=== PATIENT | male | born 1970 | race Hispanic/Latino ===

== ENCOUNTER 2024-03-18 18:29 | Emergency (ER) | payer OTHER ==
[~2024-03-18] VITALS: Ht 175.3 cm; Wt 108.9 kg
[2024-03-18] MEDS: SODIUM CHLORIDE 0.9% 1000ML 1,000 ML IV STA (19:18)
[2024-03-18] MEDS: ACETAMINOPHEN 325 MG TAB PO STA (19:18)
[2024-03-18 19:20] LABS: BASOPHILS # (AUTO) 0.1 (0.0-0.1); BASOPHILS % 0.4 % (0.0-1.0); EOSINOPHILS # (AUTO) 0.2 (0.0-0.4); EOSINOPHILS % 1.2 % (0.0-6.0); HEMATOCRIT 44.2 % (38.2-49.6); HEMOGLOBIN 14.9 g/dL (14.0-18.0); LYMPHOCYTES # (AUTO) 2.3 (1.0-3.2); LYMPHOCYTES % 16.6 % (18.0-39.1); MEAN CORPUSCULAR HEMOGLOBIN 30.2 pg (28-32); MEAN CORPUSCULAR HGB CONC 33.7 g/dL (31-35); MEAN CORPUSCULAR VOLUME 89.5 fL (81-99); MONOCYTES # (AUTO) 1.2 (0.2-0.8); MONOCYTES % 8.6 % (4.4-11.3); NEUTROPHILS # (AUTO) 9.8 (2.1-6.9); NEUTROPHILS % 71.5 % (38.7-80.0); PLATELET COUNT 212 x10e3/uL (140-360); RED BLOOD COUNT 4.94 x10e6/uL (4.3-5.7); RED CELL DISTRIBUTION WIDTH 12.6 % (11.7-14.4); WHITE BLOOD COUNT 13.65 x10e3/uL (4.8-10.8)
[2024-03-18 19:38] LABS: ALBUMIN 3.3 g/dL (3.5-5.0); ALBUMIN/GLOBULIN RATIO 0.8 (0.8-2.0); ANION GAP 14.9 mmol/L (8-16); BILIRUBIN,TOTAL 0.8 mg/dL (0.2-1.2); CALCIUM 9.1 mg/dL (8.4-10.2); CREATININE, SERUM 0.84 mg/dL (0.72-1.25); POTASSIUM 3.9 mmol/L (3.5-5.1); TOTAL PROTEIN 7.7 g/dL (6.5-8.1)
[2024-03-18 19:45] LABS: TROPONIN I 0.013 ng/mL (0-0.300)
[2024-03-18] MEDS ORDERED: IOPAMIDOL 370 MG/ML 100 ML INFUS..BTL INJ ONE (19:57)
[2024-03-18 23:12] LABS: CREATINE KINASE 102 IU/L (30-200)
[2024-03-18 23:20] LABS: TROPONIN I < 0.001 ng/mL (0-0.300)
[2024-03-18] MEDS ORDERED: AZITHROMYCIN250 MG PO (23:30)
[2024-03-18] MEDS ORDERED: KETOROLAC TROME10 MG PO (23:30)
[2024-03-18 23:52] VITALS: BP 123/91; O2SAT 100
== END 2024-03-18 23:50 | disposition home or self-care (01) ==
LOC: ER 18:44
DX: R50.9 Fever, unspecified (principal); R07.89 Other chest pain; E11.65 Type 2 diabetes mellitus with hyperglycemia; Z11.52 Encounter for screening for COVID-19; R94.31 Abnormal electrocardiogram [ECG] [EKG]
CPT/HCPCS: 36415; 71045; 71260; 80053; 82550; 83605; 83690; 83880; 84484; 85025; 87040; 93005; 99284; J2543; J7030; Q9967; U0002